=== PATIENT | male | born 1965 | race Two or more races ===

== ENCOUNTER 2021-04-13 08:49 | Inpatient (IN) | payer OTHER ==
[~2021-04-13] VITALS: Ht 170.2 cm; Wt 85.7 kg
[2021-04-13] MEDS ORDERED: LOSARTAN POTASS25 MG (09:17)
[2021-04-21] MEDS ORDERED: MEDROLPACK PO (18:07)
[2021-04-21] MEDS ORDERED: VITAMIN C500 M1 PO (18:07)
[2021-04-21] MEDS ORDERED: ECOTRIN325 M1 PO (18:07)
[2021-04-21] MEDS ORDERED: MELATONIN5 M2 PO (18:07)
[2021-04-21] MEDS ORDERED: PREDNISONE20 MG PO (18:07)
[2021-04-21] MEDS ORDERED: ZINC SULFATE50 M1 PO (18:07)
[2021-04-21] MEDS ORDERED: LOSARTAN POTAS100 MG PO (18:07)
== END 2021-04-21 20:49 | disposition home or self-care (01) | DRG 177 ==
LOC: ER 08:49 → MEDJ 21:53 → ICU 04-15 16:13 → MEDJ 04-19 19:16
PROVIDERS: ADMIT Internal Medicine; ATTEND Internal Medicine
PROC: BW2410Z Computerized Tomography (CT Scan) of Chest and Abdomen using Low Osmolar Contrast, Unenhanced and Enhanced (ICD-10-PCS; 2021-04-13)
PROC: 3E0F7SF Introduction of Other Gas into Respiratory Tract, Via Natural or Artificial Opening (ICD-10-PCS; 2021-04-13)
PROC: 8E0ZXY6 Isolation (ICD-10-PCS; 2021-04-13)
PROC: XW033E5 Introduction of Remdesivir Anti-infective into Peripheral Vein, Percutaneous Approach, New Technology Group 5 (ICD-10-PCS; principal; 2021-04-15)
DX: U07.1 COVID-19 (principal); J12.82 Pneumonia due to coronavirus disease 2019; J96.01 Acute respiratory failure with hypoxia; I10 Essential (primary) hypertension; E66.3 Overweight